=== PATIENT | male | born 1960 | race Asian ===

== ENCOUNTER 2019-01-29 15:51 | Inpatient (IN) | payer BC ==
[2019-01-29] MEDS: SODIUM CHLORIDE 0.9% 1L BAG IV* (16:42)
[2019-01-29] MEDS: ONDANSETRON 4 MG INJ IV (16:43)
[2019-01-29] MEDS: IBUPROFEN 600 MG TAB PO (16:43)
[2019-01-29] MEDS: CEFTRIAXONE 1 GM/50 ML (PMX) 50 ML IVPB (16:43)
[2019-01-29 16:44] LABS: ADD MAN DIFF? NO
[2019-01-29 16:59] LABS: ABNORMAL IP MESSAGE 1; BASOPHILS % 0.2 % (0.0-2.0); HEMATOCRIT 41.6 % (42.0-52.0); HEMOGLOBIN 12.9 g/dl (14.0-18.0); LYMPHOCYTES # 0.6 10^3/ul (0.8-2.9); MEAN CORPUSCULAR HEMOGLOBIN 21.6 pg (29.0-33.0); MEAN CORPUSCULAR VOLUME 69.7 fl (82.0-101.0); MEAN PLATELET VOLUME 9.8 fl (7.4-10.4); MONOCYTE # 1.3 10^3/ul (0.3-0.9); MONOCYTES % 10.5 % (0.0-11.0); NEUTROPHIL # 10.2 10^3/ul (1.6-7.5); NEUTROPHILS % 83.2 % (39.0-77.0); PLATELET COUNT 234 10^3/UL (140-415); POSITIVE DIFF @See below; RED BLOOD COUNT 5.97 10^6/ul (4.70-6.10); RED CELL DISTRIBUTION WIDTH 13.7 % (11.5-14.5)
[2019-01-29 16:59] LABS: WHITE BLOOD COUNT 12.2 10^3/ul (4.8-10.8)
[2019-01-29 17:17] LABS: ALANINE AMINOTRANSFERASE 75 IU/L (13-69); ALBUMIN/GLOBULIN RATIO 1.02; ALKALINE PHOSPHATASE 429 IU/L (42-121); ANION GAP 21 (5-13); ASPARTATE AMINO TRANSFERASE 54 IU/L (15-46); BILIRUBIN,INDIRECT 0.5 mg/dl (0-1.1); BILIRUBIN,TOTAL 0.5 mg/dl (0.2-1.3); BLOOD UREA NITROGEN 23 mg/dl (7-20); CALCIUM 9.3 mg/dl (8.4-10.2); CARBON DIOXIDE 19 mmol/L (21-31); CHLORIDE 94 mmol/L (97-110); CREATININE 1.39 mg/dl (0.61-1.24); Estimated GFR 53 mL/min (>60); LIPASE 38 U/L (23-300); POTASSIUM 4.6 mmol/L (3.5-5.1); SODIUM 134 mmol/L (135-144); TOTAL PROTEIN 7.9 g/dl (6.1-8.1)
[2019-01-29 17:18] LABS: INR 1.01; PROTIME 13.4 Sec (11.9-14.9)
[2019-01-29 17:19] LABS: PARTIAL THROMBOPLASTIN TIME 43.9 Sec (23.0-35.0)
[2019-01-29 17:27] LABS: TROPONIN-I < 0.012 ng/ml (0.000-0.120)
[2019-01-29 17:28] LABS: ADD UMIC YES; UR AMORPHOUS CRYSTAL MODERATE /HPF (NONE SEEN); UR ASCORBIC ACID NEGATIVE (NEGATIVE); UR BACTERIA FEW /HPF (NONE SEEN); UR BILIRUBIN (Dip) NEGATIVE (NEGATIVE); UR BLOOD (Dip) 2+ mg/dL (NEGATIVE); UR CLARITY CLOUDY (CLEAR); UR COLOR YELLOW (YELLOW); UR GLUCOSE (Dip) 3+ mg/dL (NEGATIVE); UR GRANULAR CAST FEW /HPF (NONE SEEN); UR KETONES (Dip) 2+ mg/dL (NEGATIVE); UR LEUKOCYTE ESTERASE (Dip) NEGATIVE Leu/ul (NEGATIVE); UR MUCUS FEW /HPF (NONE SEEN); UR NITRITE (Dip) NEGATIVE (NEGATIVE); UR RBC 4 /HPF (0-5); UR SPECIFIC GRAVITY (Dip) 1.022 (1.003-1.030); UR TOTAL PROTEIN (Dip) 3+ mg/dl (NEGATIVE); UR UROBILINOGEN (Dip) NEGATIVE (NEGATIVE); UR WBC 23 /HPF (0-5)
[2019-01-29 17:38] LABS: GLUCOSE 401 mg/dl (70-220)
[2019-01-29] MEDS ORDERED: DEXTROSE 10%/0.45% NACL 1,000 ML IV (17:56)
[2019-01-29] MEDS ORDERED: NS + KCL 40 MEQ 1,000 ML IV (17:56)
[2019-01-29] MEDS ORDERED: SOD CHLORIDE 0.9% 1,000 ML IV (17:56)
[2019-01-29] MEDS ORDERED: D10/0.45% NACL + KCL 40 MEQ 1,000 ML IV (17:56)
[2019-01-29] MEDS ORDERED: DEXTROSE 50% 50 ML SYRINGE IV ×4 (18:00→22:30)
[2019-01-29] MEDS: AZITHROMYCIN 500MG/NS (PMX) 250 ML IVPB (18:06)
[2019-01-29 18:13] LABS: ANISOCYTOSIS 1+ (0-0); BAND NEUTROPHILS #M 1.7 10^3/ul (0.0-0.6); BAND NEUTROPHILS % (M) 14 % (0-4); MICROCYTOSIS 1+ (0-0); OVALOCYTES 1+ (0-0); PLATELET ESTIMATE NORMAL; POIKILOCYTOSIS 2+ (0-0); SEG NEUT #M 10.7 10^3/ul (1.6-7.5); SEGMENTED NEUTROPHILS (M) % 86 % (39-77); SMUDGE%M 21 % (0-0); TEAR DROP CELLS 1+ (0-0)
[2019-01-29] MEDS: LACTATED RINGER S IV (18:34)
[2019-01-29 18:48] LABS: LACTIC ACID 1.7 mmol/L (0.5-2.0)
[2019-01-29 18:49] LABS: ANION GAP 17 (5-13); BLOOD UREA NITROGEN 21 mg/dl (7-20); CALCIUM 7.5 mg/dl (8.4-10.2); CARBON DIOXIDE 16 mmol/L (21-31); CHLORIDE 101 mmol/L (97-110); CREATININE 1.06 mg/dl (0.61-1.24); Estimated GFR > 60 mL/min (>60); GLUCOSE 336 mg/dl (70-220); MAGNESIUM 1.8 mg/dl (1.7-2.5); PHOSPHORUS 2.5 mg/dl (2.5-4.9); POTASSIUM 4.1 mmol/L (3.5-5.1); SODIUM 134 mmol/L (135-144)
[2019-01-29] MEDS: INSULIN REGULAR, HUMAN 100 UNIT in SOD CHLORIDE 0.9% 100 ML IV (19:14)
[2019-01-29] MEDS: D10/0.45% NACL + KCL 30 MEQ 1,000 ML IV (19:15)
[2019-01-29] MEDS: NS + KCL 30 MEQ 1,000 ML IV (19:15)
[2019-01-29 21:01] LABS: AADO2 Arterial 53.9 mmHg (7.0-24.0); Allen Test ACCEPTAB; Arterial Base Excess -7.6 mmol/L (-3.0-3); Arterial COHb 0.7 % (0.0-3.0); Arterial Fraction of Oxyhgb 93.2 % (93.0-99.0); Arterial HCO3 15.7 mmol/L (22.0-26.0); Arterial MetHb 0.2 % (0.0-1.5); Arterial pCO2 25.7 mmhg (35-45); MODE ROOM AIR; Site Right Radial
[2019-01-29 21:21] LABS: LACTIC ACID 1.6 mmol/L (0.5-2.0)
[2019-01-29 21:22] LABS: ANION GAP 12 (5-13); BLOOD UREA NITROGEN 23 mg/dl (7-20); CALCIUM 7.4 mg/dl (8.4-10.2); CARBON DIOXIDE 20 mmol/L (21-31); CHLORIDE 102 mmol/L (97-110); CREATININE 1.04 mg/dl (0.61-1.24); Estimated GFR > 60 mL/min (>60); GLUCOSE 372 mg/dl (70-220); MAGNESIUM 1.9 mg/dl (1.7-2.5); PHOSPHORUS 2.3 mg/dl (2.5-4.9); POTASSIUM 4.1 mmol/L (3.5-5.1); SODIUM 134 mmol/L (135-144)
[2019-01-29] MEDS ORDERED: GLUCOSE GEL 15 GRAM TUBE PO ×2 (22:30)
[2019-01-29] MEDS ORDERED: GLUCAGON 1 MG INJ IM (22:30)
[2019-01-29] MEDS ORDERED: GLUCOSE GEL 15 GRAM TUBE BUCCAL (22:30)
[2019-01-29 22:38] LABS: MODE ROOM AIR; MetHgb Venous 0.6 %; Sample Type Blood venous; Site VENOUS LINE; Venous COHb 0.5 %; Venous Fraction OxyHgb 51.7 %; Venous Oxygen Sat 52.3 mmHG (55.0-75.0)
[2019-01-29 23:33] LABS: LACTIC ACID 1.7 mmol/L (0.5-2.0)
[2019-01-29] MEDS: INSULIN GLARGINE [LANTus] (100 UNITS/ML) SYG SC (23:35)
[2019-01-30] MEDS: NS + KCL 30 MEQ 1,000 ML IV (02:09)
[2019-01-30] MEDS: ACETAMINOPHEN 325 MG TAB PO ×2 (02:50→08:59)
[2019-01-30 03:55] LABS: ANION GAP 7 (5-13); BLOOD UREA NITROGEN 17 mg/dl (7-20); CALCIUM 7.6 mg/dl (8.4-10.2); CARBON DIOXIDE 24 mmol/L (21-31); CHLORIDE 106 mmol/L (97-110); CREATININE 0.85 mg/dl (0.61-1.24); Estimated GFR > 60 mL/min (>60); GLUCOSE 299 mg/dl (70-220); PHOSPHORUS 0.8 mg/dl (2.5-4.9); POTASSIUM 3.9 mmol/L (3.5-5.1); SODIUM 137 mmol/L (135-144)
[2019-01-30] MEDS: SOD CHLORIDE 0.9% 1,000 ML IV ×2 (04:56→13:11)
[2019-01-30 07:17] LABS: IRON < 10 ug/dl (35-150)
[2019-01-30 07:18] LABS: TOTAL IRON BINDING CAPACITY 188 ug/dl (241-421)
[2019-01-30] MEDS: FAMOTIDINE 20 MG TAB PO ×2 (08:59→20:24)
[2019-01-30] MEDS: INSULIN GLARGINE [LANTus] (100 UNITS/ML) SYG SC ×2 (09:06→20:26)
[2019-01-30] MEDS: INSULIN ASPART [NOVOLOG] 3 ML PEN SC ×6 (09:07→20:24)
[2019-01-30] MEDS: LEVOFLOXACIN 500MG/D5W (PMX) 100 ML IVPB (09:22)
[2019-01-30] MEDS: SOD FERRIC GLUC COMPLX 125 MG in SOD CHLORIDE 0.9% 100 ML IVPB (13:10)
[2019-01-30] MEDS: CEFEPIME 2GM/50 ML (PMX) 50 ML IVPB ×2 (13:10→20:24)
[2019-01-30] MEDS: POTASSIUM PHOSPHATE 40 MEQ in SOD CHLORIDE 0.9% 250 ML IVPB (13:10)
[2019-01-30 14:49] LABS: TROPONIN-I < 0.012 ng/ml (0.000-0.120)
[2019-01-30] MEDS: ONDANSETRON 4 MG INJ IV (15:29)
[2019-01-30] MEDS: morphine 2 MG INJ IV ×2 (15:30→21:47)
[2019-01-31] MEDS: ACCU-CHEK XX (01:45)
[2019-01-31] MEDS: ACETAMINOPHEN 325 MG TAB PO ×2 (03:13→15:34)
[2019-01-31] MEDS: morphine 2 MG INJ IV (03:19)
[2019-01-31] MEDS: SOD CHLORIDE 0.9% 1,000 ML IV ×3 (03:43→20:24)
[2019-01-31 04:58] LABS: ABNORMAL IP MESSAGE 1; HEMATOCRIT 30.8 % (42.0-52.0); MEAN CORPUSCULAR HEMOGLOBIN 21.5 pg (29.0-33.0); MEAN CORPUSCULAR HGB CONC 32.5 g/dl (32.0-37.0); MEAN CORPUSCULAR VOLUME 66.2 fl (82.0-101.0); MEAN PLATELET VOLUME 9.9 fl (7.4-10.4); PLATELET COUNT 212 10^3/UL (140-415); POSITIVE DIFF @See below; RED BLOOD COUNT 4.65 10^6/ul (4.70-6.10); RED CELL DISTRIBUTION WIDTH 13.7 % (11.5-14.5)
[2019-01-31 04:58] LABS: WHITE BLOOD COUNT 8.1 10^3/ul (4.8-10.8)
[2019-01-31 05:24] LABS: ADD MAN DIFF? YES
[2019-01-31 05:28] LABS: ANION GAP 8 (5-13); BLOOD UREA NITROGEN 12 mg/dl (7-20); CALCIUM 7.7 mg/dl (8.4-10.2); CARBON DIOXIDE 22 mmol/L (21-31); CHLORIDE 108 mmol/L (97-110); CREATININE 0.82 mg/dl (0.61-1.24); Estimated GFR > 60 mL/min (>60); GLUCOSE 146 mg/dl (70-220); MAGNESIUM 1.8 mg/dl (1.7-2.5); PHOSPHORUS 1.4 mg/dl (2.5-4.9); POTASSIUM 3.2 mmol/L (3.5-5.1); SODIUM 138 mmol/L (135-144)
[2019-01-31] MEDS: INSULIN ASPART [NOVOLOG] 3 ML PEN SC ×7 (07:35→20:21)
[2019-01-31 07:46] LABS: ANISOCYTOSIS 1+ (0-0); BAND NEUTROPHILS #M 0.9 10^3/ul (0.0-0.6); BAND NEUTROPHILS % (M) 12 % (0-4); BURR CELLS 2+ (0-0); EOSINOPHILS % (M) 1 % (0-7); HYPOCHROMASIA 1+ (0-0); LYMPHOCYTES #M 0.5 10^3/ul (0.8-2.9); LYMPHOCYTES % (M) 7 % (15-51); MONOCYTE #M 0.1 10^3/ul (0.3-0.9); MONOCYTES % (M) 2 % (0-11); MYELOCYTES #M 0.1 10^3/ul (0.0-0.0); MYELOCYTES % (M) 2 % (0-0); OVALOCYTES 1+ (0-0); PLATELET ESTIMATE NORMAL; POIKILOCYTOSIS 1+ (0-0); SEG NEUT #M 6.2 10^3/ul (1.6-7.5); SEGMENTED NEUTROPHILS (M) % 76 % (39-77); SMUDGE%M 2 % (0-0); TARGET CELLS 1+ (0-0)
[2019-01-31] MEDS: FAMOTIDINE 20 MG TAB PO ×2 (08:41→20:18)
[2019-01-31] MEDS: CEFEPIME 2GM/50 ML (PMX) 50 ML IVPB ×2 (09:57→20:18)
[2019-01-31] MEDS: SOD FERRIC GLUC COMPLX 125 MG in SOD CHLORIDE 0.9% 100 ML IVPB (15:27)
[2019-01-31] MEDS: POTASSIUM PHOSPHATE 40 MEQ in SOD CHLORIDE 0.9% 250 ML IVPB (15:28)
[2019-01-31] MEDS: INSULIN GLARGINE [LANTus] (100 UNITS/ML) SYG SC (20:19)
[2019-02-01] MEDS: ACCU-CHEK XX (02:16)
[2019-02-01] MEDS: morphine 2 MG INJ IV (02:17)
[2019-02-01] MEDS: SOD CHLORIDE 0.9% 1,000 ML IV (02:20)
[2019-02-01 05:15] LABS: HEMATOCRIT 31.7 % (42.0-52.0); HEMOGLOBIN 10.7 g/dl (14.0-18.0); MEAN CORPUSCULAR HEMOGLOBIN 21.8 pg (29.0-33.0); MEAN CORPUSCULAR HGB CONC 33.8 g/dl (32.0-37.0); MEAN CORPUSCULAR VOLUME 64.6 fl (82.0-101.0); MEAN PLATELET VOLUME 10.3 fl (7.4-10.4); NUCLEATED RED BLOOD CELLS% 0.2 /100WBC (0.0-0.0); PLATELET COUNT 251 10^3/UL (140-415); POSITIVE DIFF @See below; RED BLOOD COUNT 4.91 10^6/ul (4.70-6.10); RED CELL DISTRIBUTION WIDTH 13.7 % (11.5-14.5)
[2019-02-01 05:15] LABS: WHITE BLOOD COUNT 10.6 10^3/ul (4.8-10.8)
[2019-02-01 05:25] LABS: ADD MAN DIFF? YES
[2019-02-01 05:39] LABS: ANION GAP 7 (5-13); BLOOD UREA NITROGEN 11 mg/dl (7-20); CALCIUM 7.5 mg/dl (8.4-10.2); CARBON DIOXIDE 23 mmol/L (21-31); CHLORIDE 106 mmol/L (97-110); CREATININE 0.73 mg/dl (0.61-1.24); Estimated GFR > 60 mL/min (>60); GLUCOSE 145 mg/dl (70-220); POTASSIUM 3.3 mmol/L (3.5-5.1); SODIUM 136 mmol/L (135-144)
[2019-02-01 05:45] LABS: MAGNESIUM 1.9 mg/dl (1.7-2.5)
[2019-02-01 05:45] LABS: PHOSPHORUS 1.5 mg/dl (2.5-4.9)
[2019-02-01] MEDS: POTASSIUM CHLORIDE 100 ML IVPB (06:37)
[2019-02-01] MEDS: INSULIN ASPART [NOVOLOG] 3 ML PEN SC ×7 (07:35→20:53)
[2019-02-01 08:03] LABS: ANISOCYTOSIS 1+ (0-0); BAND NEUTROPHILS #M 1.3 10^3/ul (0.0-0.6); BAND NEUTROPHILS % (M) 13 % (0-4); GIANT THROMBO% (M) 1 % (0-0); LYMPHOCYTES #M 0.2 10^3/ul (0.8-2.9); LYMPHOCYTES % (M) 2 % (15-51); MONOCYTES % (M) 10 % (0-11); PLATELET ESTIMATE NORMAL; POIKILOCYTOSIS 1+ (0-0); REACTIVE LYMPHOCYTES #M 0.3 10^3/ul (0.0-0.0); REACTIVE LYMPHOCYTES% (M) 3 % (0-0); SEG NEUT #M 7.8 10^3/ul (1.6-7.5); SEGMENTED NEUTROPHILS (M) % 72 % (39-77); SMUDGE%M 8 % (0-0); TARGET CELLS 1+ (0-0)
[2019-02-01] MEDS: CEFEPIME 2GM/50 ML (PMX) 50 ML IVPB ×2 (08:37→22:13)
[2019-02-01] MEDS: ACETAMINOPHEN 325 MG TAB PO ×2 (08:37→17:50)
[2019-02-01] MEDS: FAMOTIDINE 20 MG TAB PO ×2 (08:37→20:51)
[2019-02-01] MEDS: SOD FERRIC GLUC COMPLX 125 MG in SOD CHLORIDE 0.9% 100 ML IVPB (12:24)
[2019-02-01] MEDS: POTASSIUM PHOSPHATE 40 MEQ in SOD CHLORIDE 0.9% 250 ML IVPB (14:40)
[2019-02-01] MEDS: SOD CHLORIDE 0.45% 1,000 ML IV (14:48)
[2019-02-01] MEDS: INSULIN GLARGINE [LANTus] (100 UNITS/ML) SYG SC (20:54)
[2019-02-02] MEDS: ACETAMINOPHEN 325 MG TAB PO ×2 (01:57→13:55)
[2019-02-02] MEDS: ACCU-CHEK XX (02:00)
[2019-02-02] MEDS: SOD CHLORIDE 0.45% 1,000 ML IV ×3 (04:23→19:26)
[2019-02-02 06:39] LABS: HEMATOCRIT 31.8 % (42.0-52.0); HEMOGLOBIN 10.6 g/dl (14.0-18.0); MEAN CORPUSCULAR HEMOGLOBIN 21.4 pg (29.0-33.0); MEAN CORPUSCULAR HGB CONC 33.3 g/dl (32.0-37.0); MEAN CORPUSCULAR VOLUME 64.1 fl (82.0-101.0); NUCLEATED RED BLOOD CELLS% 0.2 /100WBC (0.0-0.0); PLATELET COUNT 312 10^3/UL (140-415); POSITIVE DIFF @See below; RED BLOOD COUNT 4.96 10^6/ul (4.70-6.10); RED CELL DISTRIBUTION WIDTH 13.6 % (11.5-14.5)
[2019-02-02 06:39] LABS: WHITE BLOOD COUNT 11.1 10^3/ul (4.8-10.8)
[2019-02-02 06:47] LABS: ADD MAN DIFF? YES
[2019-02-02 07:00] LABS: MAGNESIUM 1.9 mg/dl (1.7-2.5)
[2019-02-02 07:00] LABS: PHOSPHORUS 2.8 mg/dl (2.5-4.9)
[2019-02-02 07:03] LABS: ANION GAP 9 (5-13); BLOOD UREA NITROGEN 11 mg/dl (7-20); CALCIUM 7.4 mg/dl (8.4-10.2); CARBON DIOXIDE 23 mmol/L (21-31); CHLORIDE 105 mmol/L (97-110); CREATININE 0.68 mg/dl (0.61-1.24); Estimated GFR > 60 mL/min (>60); GLUCOSE 92 mg/dl (70-220); POTASSIUM 3.3 mmol/L (3.5-5.1); SODIUM 137 mmol/L (135-144)
[2019-02-02 07:44] LABS: ANISOCYTOSIS 1+ (0-0); BAND NEUTROPHILS #M 0.3 10^3/ul (0.0-0.6); BAND NEUTROPHILS % (M) 3 % (0-4); EOSINOPHILS % (M) 1 % (0-7); HYPOCHROMASIA 1+ (0-0); LYMPHOCYTES #M 0.9 10^3/ul (0.8-2.9); LYMPHOCYTES % (M) 9 % (15-51); MONOCYTE #M 1.5 10^3/ul (0.3-0.9); MONOCYTES % (M) 14 % (0-11); PLATELET ESTIMATE NORMAL; POIKILOCYTOSIS 1+ (0-0); POLYCHROMASIA 1+ (0-0); SEG NEUT #M 8.1 10^3/ul (1.6-7.5); SEGMENTED NEUTROPHILS (M) % 73 % (39-77); SMUDGE%M 7 % (0-0); TARGET CELLS 1+ (0-0)
[2019-02-02] MEDS: INSULIN ASPART [NOVOLOG] 3 ML PEN SC ×7 (08:00→21:00)
[2019-02-02] MEDS: FAMOTIDINE 20 MG TAB PO ×2 (08:30→20:58)
[2019-02-02] MEDS: CEFEPIME 2GM/50 ML (PMX) 50 ML IVPB ×3 (09:00→20:57)
[2019-02-02] MEDS: POTASSIUM CHLORIDE (SR) 20 MEQ TAB PO (15:18)
[2019-02-02 16:21] LABS: ADD UMIC YES; UR ASCORBIC ACID NEGATIVE (NEGATIVE); UR BILIRUBIN (Dip) NEGATIVE (NEGATIVE); UR BLOOD (Dip) 1+ mg/dL (NEGATIVE); UR CLARITY CLEAR (CLEAR); UR COLOR YELLOW (YELLOW); UR GLUCOSE (Dip) 3+ mg/dL (NEGATIVE); UR KETONES (Dip) TRACE mg/dL (NEGATIVE); UR LEUKOCYTE ESTERASE (Dip) NEGATIVE Leu/ul (NEGATIVE); UR NITRITE (Dip) NEGATIVE (NEGATIVE); UR RBC 1 /HPF (0-5); UR TOTAL PROTEIN (Dip) 1+ mg/dl (NEGATIVE); UR UROBILINOGEN (Dip) 2+ mg/dL (NEGATIVE); UR WBC 9 /HPF (0-5)
[2019-02-02] MEDS: INSULIN GLARGINE [LANTus] (100 UNITS/ML) SYG SC (21:03)
[2019-02-02 21:52] LABS: LACTIC ACID 2.2 mmol/L (0.5-2.0)
[2019-02-02] MEDS: ACETAMINOPHEN 650MG/20.3ML CUP PO (22:27)
[2019-02-03] MEDS: ACCU-CHEK XX (02:00)
[2019-02-03] MEDS: ACETAMINOPHEN 325 MG TAB PO ×2 (05:13→14:39)
[2019-02-03 06:17] LABS: ADD MAN DIFF? NO
[2019-02-03 06:20] LABS: BASOPHILS % 0.3 % (0.0-2.0); EOSINOPHILS # 0.1 10^3/ul (0.0-0.5); EOSINOPHILS % 0.9 % (0.0-7.0); HEMATOCRIT 32.4 % (42.0-52.0); HEMOGLOBIN 10.8 g/dl (14.0-18.0); LYMPHOCYTES # 1.1 10^3/ul (0.8-2.9); LYMPHOCYTES % 8.3 % (15.0-51.0); MEAN CORPUSCULAR HGB CONC 33.3 g/dl (32.0-37.0); MEAN CORPUSCULAR VOLUME 65.9 fl (82.0-101.0); MEAN PLATELET VOLUME 9.7 fl (7.4-10.4); MONOCYTE # 1.4 10^3/ul (0.3-0.9); MONOCYTES % 10.9 % (0.0-11.0); NEUTROPHIL # 10.2 10^3/ul (1.6-7.5); NEUTROPHILS % 78.4 % (39.0-77.0); PLATELET COUNT 374 10^3/UL (140-415); RED BLOOD COUNT 4.92 10^6/ul (4.70-6.10); RED CELL DISTRIBUTION WIDTH 13.4 % (11.5-14.5)
[2019-02-03 07:04] LABS: ANION GAP 8 (5-13); BLOOD UREA NITROGEN 13 mg/dl (7-20); CALCIUM 8.3 mg/dl (8.4-10.2); CARBON DIOXIDE 26 mmol/L (21-31); CHLORIDE 102 mmol/L (97-110); CREATININE 0.76 mg/dl (0.61-1.24); Estimated GFR > 60 mL/min (>60); GLUCOSE 172 mg/dl (70-220); MAGNESIUM 1.8 mg/dl (1.7-2.5); POTASSIUM 3.4 mmol/L (3.5-5.1); SODIUM 136 mmol/L (135-144)
[2019-02-03 07:04] LABS: PHOSPHORUS 2.8 mg/dl (2.5-4.9)
[2019-02-03] MEDS: FAMOTIDINE 20 MG TAB PO ×2 (08:25→21:33)
[2019-02-03] MEDS: CEFEPIME 2GM/50 ML (PMX) 50 ML IVPB (08:26)
[2019-02-03] MEDS: INSULIN ASPART [NOVOLOG] 3 ML PEN SC ×7 (08:28→21:32)
[2019-02-03] MEDS: SOD CHLORIDE 0.45% 1,000 ML IV (10:49)
[2019-02-03] MEDS: POTASSIUM CHLORIDE (SR) 20 MEQ TAB PO (17:44)
[2019-02-03 18:43] LABS: LACTIC ACID 1.4 mmol/L (0.5-2.0)
[2019-02-03] MEDS: INSULIN GLARGINE [LANTus] (100 UNITS/ML) SYG SC (21:31)
[2019-02-03] MEDS: DOCUSATE SODIUM 100 MG CAP PO (21:33)
[2019-02-03] MEDS: LEVOFLOXACIN 750MG/D5W (PMX) 150 ML IVPB (21:33)
[2019-02-04] MEDS: ACCU-CHEK XX (02:00)
[2019-02-04] MEDS: SOD CHLORIDE 0.45% 1,000 ML IV ×4 (02:20→23:00)
[2019-02-04] MEDS: ACETAMINOPHEN 325 MG TAB PO (02:42)
[2019-02-04 07:21] LABS: ADD MAN DIFF? NO
[2019-02-04 07:24] LABS: WHITE BLOOD COUNT 10.2 10^3/ul (4.8-10.8)
[2019-02-04 07:24] LABS: BASOPHILS % 0.3 % (0.0-2.0); EOSINOPHILS # 0.1 10^3/ul (0.0-0.5); EOSINOPHILS % 0.6 % (0.0-7.0); HEMOGLOBIN 9.5 g/dl (14.0-18.0); LYMPHOCYTES # 0.9 10^3/ul (0.8-2.9); LYMPHOCYTES % 9.1 % (15.0-51.0); MEAN CORPUSCULAR HEMOGLOBIN 21.5 pg (29.0-33.0); MEAN CORPUSCULAR HGB CONC 32.8 g/dl (32.0-37.0); MEAN CORPUSCULAR VOLUME 65.8 fl (82.0-101.0); MEAN PLATELET VOLUME 9.5 fl (7.4-10.4); MONOCYTE # 1.1 10^3/ul (0.3-0.9); MONOCYTES % 10.6 % (0.0-11.0); NEUTROPHILS % 78.3 % (39.0-77.0); PLATELET COUNT 386 10^3/UL (140-415); POSITIVE DIFF @See below; RED BLOOD COUNT 4.41 10^6/ul (4.70-6.10); RED CELL DISTRIBUTION WIDTH 13.4 % (11.5-14.5)
[2019-02-04 07:44] LABS: LACTIC ACID 1.3 mmol/L (0.5-2.0)
[2019-02-04 07:48] LABS: ANION GAP 6 (5-13); BLOOD UREA NITROGEN 15 mg/dl (7-20); CALCIUM 7.7 mg/dl (8.4-10.2); CARBON DIOXIDE 26 mmol/L (21-31); CHLORIDE 101 mmol/L (97-110); CREATININE 0.73 mg/dl (0.61-1.24); Estimated GFR > 60 mL/min (>60); GLUCOSE 240 mg/dl (70-220); POTASSIUM 3.9 mmol/L (3.5-5.1); SODIUM 133 mmol/L (135-144)
[2019-02-04 07:49] LABS: MAGNESIUM 1.7 mg/dl (1.7-2.5)
[2019-02-04 07:49] LABS: PHOSPHORUS 3.1 mg/dl (2.5-4.9)
[2019-02-04] MEDS: FAMOTIDINE 20 MG TAB PO ×2 (08:01→20:14)
[2019-02-04] MEDS: DOCUSATE SODIUM 100 MG CAP PO ×2 (08:01→20:08)
[2019-02-04] MEDS: INSULIN ASPART [NOVOLOG] 3 ML PEN SC ×7 (08:06→20:14)
[2019-02-04 09:28] LABS: ANISOCYTOSIS 1+ (0-0); BAND NEUTROPHILS #M 0.3 10^3/ul (0.0-0.6); BAND NEUTROPHILS % (M) 3 % (0-4); EOSINOPHILS % (M) 1 % (0-7); GIANT THROMBO% (M) 1 % (0-0); LYMPHOCYTES #M 0.5 10^3/ul (0.8-2.9); LYMPHOCYTES % (M) 5 % (15-51); MONOCYTE #M 0.7 10^3/ul (0.3-0.9); MONOCYTES % (M) 7 % (0-11); PLATELET ESTIMATE NORMAL; POIKILOCYTOSIS 1+ (0-0); POLYCHROMASIA 1+ (0-0); REACTIVE LYMPHOCYTES #M 0.3 10^3/ul (0.0-0.0); REACTIVE LYMPHOCYTES% (M) 3 % (0-0); SEG NEUT #M 8.3 10^3/ul (1.6-7.5); SEGMENTED NEUTROPHILS (M) % 81 % (39-77); SMUDGE%M 6 % (0-0)
[2019-02-04 13:44] LABS: OCCULT BLOOD STOOL NEGATIVE (NEGATIVE)
[2019-02-04] MEDS: GUAIFENESIN/DM (SR) TAB PO ×2 (14:52→20:08)
[2019-02-04] MEDS: IBUPROFEN 600 MG TAB PO (20:09)
[2019-02-04] MEDS: SENNA TAB PO (20:09)
[2019-02-04] MEDS: LEVOFLOXACIN 750MG/D5W (PMX) 150 ML IVPB (20:09)
[2019-02-04] MEDS: INSULIN GLARGINE [LANTus] (100 UNITS/ML) SYG SC (20:13)
[2019-02-05] MEDS: ACCU-CHEK XX (02:00)
[2019-02-05] MEDS: ACETAMINOPHEN 325 MG TAB PO ×2 (05:40→18:06)
[2019-02-05] MEDS: SOD CHLORIDE 0.45% 1,000 ML IV ×2 (05:40→22:11)
[2019-02-05] MEDS: GUAIFENESIN/DM (SR) TAB PO ×3 (05:40→21:02)
[2019-02-05 06:09] LABS: ADD MAN DIFF? NO
[2019-02-05 06:15] LABS: BASOPHILS % 0.3 % (0.0-2.0); EOSINOPHILS # 0.1 10^3/ul (0.0-0.5); HEMATOCRIT 28.4 % (42.0-52.0); HEMOGLOBIN 9.4 g/dl (14.0-18.0); LYMPHOCYTES # 1.2 10^3/ul (0.8-2.9); LYMPHOCYTES % 10.8 % (15.0-51.0); MEAN CORPUSCULAR HEMOGLOBIN 21.7 pg (29.0-33.0); MEAN CORPUSCULAR HGB CONC 33.1 g/dl (32.0-37.0); MEAN CORPUSCULAR VOLUME 65.4 fl (82.0-101.0); MEAN PLATELET VOLUME 9.5 fl (7.4-10.4); MONOCYTES % 9.7 % (0.0-11.0); NEUTROPHIL # 8.2 10^3/ul (1.6-7.5); NEUTROPHILS % 76.8 % (39.0-77.0); PLATELET COUNT 436 10^3/UL (140-415); RED BLOOD COUNT 4.34 10^6/ul (4.70-6.10); RED CELL DISTRIBUTION WIDTH 13.8 % (11.5-14.5)
[2019-02-05 06:15] LABS: WHITE BLOOD COUNT 10.7 10^3/ul (4.8-10.8)
[2019-02-05 06:46] LABS: ANION GAP 7 (5-13); BLOOD UREA NITROGEN 14 mg/dl (7-20); CALCIUM 8.3 mg/dl (8.4-10.2); CARBON DIOXIDE 27 mmol/L (21-31); CHLORIDE 103 mmol/L (97-110); CREATININE 0.79 mg/dl (0.61-1.24); Estimated GFR > 60 mL/min (>60); GLUCOSE 139 mg/dl (70-220); POTASSIUM 3.6 mmol/L (3.5-5.1); SODIUM 137 mmol/L (135-144)
[2019-02-05 06:48] LABS: MAGNESIUM 1.9 mg/dl (1.7-2.5)
[2019-02-05] MEDS: INSULIN ASPART [NOVOLOG] 3 ML PEN SC ×7 (08:00→21:13)
[2019-02-05] MEDS: SENNA TAB PO ×2 (08:24→21:02)
[2019-02-05] MEDS: FAMOTIDINE 20 MG TAB PO ×2 (08:24→21:02)
[2019-02-05] MEDS: DOCUSATE SODIUM 100 MG CAP PO ×2 (08:24→21:02)
[2019-02-05] MEDS: LEVOFLOXACIN 750MG/D5W (PMX) 150 ML IVPB (20:27)
[2019-02-05] MEDS: INSULIN GLARGINE [LANTus] (100 UNITS/ML) SYG SC (21:14)
[2019-02-06] MEDS: ACCU-CHEK XX (01:11)
[2019-02-06] MEDS: GUAIFENESIN/DM (SR) TAB PO ×3 (06:46→20:11)
[2019-02-06] MEDS: INSULIN ASPART [NOVOLOG] 3 ML PEN SC ×7 (08:27→20:12)
[2019-02-06] MEDS: SENNA TAB PO ×2 (08:29→20:11)
[2019-02-06] MEDS: DOCUSATE SODIUM 100 MG CAP PO ×2 (08:29→20:12)
[2019-02-06] MEDS: FAMOTIDINE 20 MG TAB PO ×2 (08:29→20:12)
[2019-02-06 10:51] LABS: ADD MAN DIFF? NO
[2019-02-06 10:54] LABS: BASOPHILS % 0.3 % (0.0-2.0); EOSINOPHILS # 0.1 10^3/ul (0.0-0.5); EOSINOPHILS % 0.6 % (0.0-7.0); HEMATOCRIT 28.8 % (42.0-52.0); HEMOGLOBIN 9.3 g/dl (14.0-18.0); LYMPHOCYTES # 0.9 10^3/ul (0.8-2.9); MEAN CORPUSCULAR HEMOGLOBIN 21.9 pg (29.0-33.0); MEAN CORPUSCULAR HGB CONC 32.3 g/dl (32.0-37.0); MEAN CORPUSCULAR VOLUME 67.8 fl (82.0-101.0); MONOCYTE # 0.8 10^3/ul (0.3-0.9); MONOCYTES % 7.2 % (0.0-11.0); NEUTROPHIL # 9.4 10^3/ul (1.6-7.5); NEUTROPHILS % 82.8 % (39.0-77.0); PLATELET COUNT 481 10^3/UL (140-415); RED BLOOD COUNT 4.25 10^6/ul (4.70-6.10); RED CELL DISTRIBUTION WIDTH 14.6 % (11.5-14.5)
[2019-02-06 10:54] LABS: WHITE BLOOD COUNT 11.3 10^3/ul (4.8-10.8)
[2019-02-06 11:19] LABS: ALANINE AMINOTRANSFERASE 48 IU/L (13-69); ALBUMIN 2.8 g/dl (3.3-4.9); ALKALINE PHOSPHATASE 370 IU/L (42-121); ANION GAP 7 (5-13); ASPARTATE AMINO TRANSFERASE 39 IU/L (15-46); BILIRUBIN,INDIRECT 0.6 mg/dl (0-1.1); BILIRUBIN,TOTAL 0.6 mg/dl (0.2-1.3); BLOOD UREA NITROGEN 14 mg/dl (7-20); CARBON DIOXIDE 27 mmol/L (21-31); CHLORIDE 100 mmol/L (97-110); CREATININE 0.81 mg/dl (0.61-1.24); Estimated GFR > 60 mL/min (>60); GLUCOSE 263 mg/dl (70-220); MAGNESIUM 1.8 mg/dl (1.7-2.5); PHOSPHORUS 3.2 mg/dl (2.5-4.9); POTASSIUM 3.8 mmol/L (3.5-5.1); SODIUM 134 mmol/L (135-144); TOTAL PROTEIN 6.3 g/dl (6.1-8.1)
[2019-02-06] MEDS: CEFEPIME 1GM/50 ML (PMX) 50 ML IVPB ×2 (11:50→20:11)
[2019-02-06] MEDS: SOD CHLORIDE 0.45% 1,000 ML IV (11:54)
[2019-02-06] MEDS ORDERED: VANCOMYCIN IV PER PHARMACY XX (12:00)
[2019-02-06] MEDS: VANCOMYCIN 1 GM 250 ML IVPB (12:43)
[2019-02-06 12:47] LABS: PROCALCITONIN 1.47 ng/mL (0.00-0.10)
[2019-02-06] MEDS: ACETAMINOPHEN 325 MG TAB PO (20:11)
[2019-02-06] MEDS: INSULIN GLARGINE [LANTus] (100 UNITS/ML) SYG SC (20:22)
[2019-02-07] MEDS: VANCOMYCIN 750 MG (PMX) 250 ML IVPB ×3 (00:32→23:49)
[2019-02-07] MEDS: ACCU-CHEK XX (02:00)
[2019-02-07] MEDS ORDERED: VANCOMYCIN IV PER PHARMACY XX (03:30)
[2019-02-07] MEDS ORDERED: ACETAMINOPHEN 325 MG TAB PO (03:30)
[2019-02-07] MEDS ORDERED: KETOROLAC 15 MG INJ IV (03:30)
[2019-02-07] MEDS ORDERED: ONDANSETRON 4 MG INJ IV (03:30)
[2019-02-07] MEDS ORDERED: HYDROCODONE/APAP (5/325) TAB PO (03:30)
[2019-02-07] MEDS ORDERED: SOD CHLORIDE 0.9% 1,000 ML IV (03:30)
[2019-02-07] MEDS: GUAIFENESIN/DM (SR) TAB PO (05:01)
[2019-02-07] MEDS: ACETAMINOPHEN 325 MG TAB PO ×2 (05:03→11:30)
[2019-02-07] MEDS ORDERED: PANTOPRAZOLE (EC) 40 MG TAB PO (06:00)
[2019-02-07] MEDS: INSULIN ASPART [NOVOLOG] 3 ML PEN SC ×7 (08:20→21:00)
[2019-02-07] MEDS ORDERED: METOPROLOL 25 MG TAB PO (09:00)
[2019-02-07] MEDS ORDERED: CEFEPIME 1GM/50 ML (PMX) 50 ML IVPB (09:00)
[2019-02-07] MEDS: FAMOTIDINE 20 MG TAB PO ×2 (09:18→21:06)
[2019-02-07] MEDS: DOCUSATE SODIUM 100 MG CAP PO ×2 (09:18→21:06)
[2019-02-07] MEDS: CEFEPIME 1GM/50 ML (PMX) 50 ML IVPB ×2 (09:18→21:06)
[2019-02-07] MEDS: SENNA TAB PO ×2 (09:18→21:06)
[2019-02-07 10:04] LABS: ADD MAN DIFF? NO
[2019-02-07 10:07] LABS: WHITE BLOOD COUNT 10.8 10^3/ul (4.8-10.8)
[2019-02-07 10:07] LABS: BASOPHILS % 0.4 % (0.0-2.0); EOSINOPHILS # 0.1 10^3/ul (0.0-0.5); EOSINOPHILS % 0.6 % (0.0-7.0); HEMOGLOBIN 9.8 g/dl (14.0-18.0); LYMPHOCYTES # 0.9 10^3/ul (0.8-2.9); LYMPHOCYTES % 8.6 % (15.0-51.0); MEAN CORPUSCULAR HEMOGLOBIN 21.7 pg (29.0-33.0); MEAN CORPUSCULAR HGB CONC 31.6 g/dl (32.0-37.0); MEAN CORPUSCULAR VOLUME 68.6 fl (82.0-101.0); MEAN PLATELET VOLUME 8.8 fl (7.4-10.4); MONOCYTE # 0.7 10^3/ul (0.3-0.9); MONOCYTES % 6.3 % (0.0-11.0); NEUTROPHILS % 83.3 % (39.0-77.0); PLATELET COUNT 523 10^3/UL (140-415); RED BLOOD COUNT 4.52 10^6/ul (4.70-6.10); RED CELL DISTRIBUTION WIDTH 14.8 % (11.5-14.5)
[2019-02-07] MEDS: INSULIN GLARGINE [LANTus] (100 UNITS/ML) SYG SC (21:09)
[2019-02-07 23:32] LABS: VANCOMYCIN,TROUGH 10.4 ug/ml (10.0-20.0)
[2019-02-08] MEDS: ACCU-CHEK XX (02:00)
[2019-02-08] MEDS: GUAIFENESIN/DM (SR) TAB PO (05:58)
[2019-02-08] MEDS: INSULIN ASPART [NOVOLOG] 3 ML PEN SC ×4 (08:00→13:06)
[2019-02-08] MEDS: SENNA TAB PO (08:41)
[2019-02-08] MEDS: FAMOTIDINE 20 MG TAB PO (08:41)
[2019-02-08] MEDS: DOCUSATE SODIUM 100 MG CAP PO (08:41)
[2019-02-08] MEDS: ACETAMINOPHEN 325 MG TAB PO (08:49)
[2019-02-08] MEDS: CEFEPIME 1GM/50 ML (PMX) 50 ML IVPB (10:27)
[2019-02-08] MEDS ORDERED: VANCOMYCIN 1 GM 250 ML IVPB (12:00)
== END 2019-02-08 14:45 | disposition home or self-care (01) | DRG 871 ==
LOC: 2NE 02-01 15:35 → E/R 15:51 → ICU 18:10
PROVIDERS: Internal Medicine
DX: A41.9 Sepsis, unspecified organism (principal); E11.10 Type 2 diabetes mellitus with ketoacidosis without coma; J18.9 Pneumonia, unspecified organism; N17.9 Acute kidney failure, unspecified; N39.0 Urinary tract infection, site not specified; E86.0 Dehydration; D50.9 Iron deficiency anemia, unspecified; I10 Essential (primary) hypertension; Z79.4 Long term (current) use of insulin; B96.1 Klebsiella pneumoniae [K. pneumoniae] as the cause of diseases classified elsewhere
CPT/HCPCS: 36415; 36600; 71045; 71250; 74176; 80048; 80053; 80202; 81001; 82270; 82728; 82803; 82962; 83036; 83540; 83605; 83690; 83735; 84100; 84145; 84484; 85025; 85610; 85730; 87040-91; 87081; 87086; 93005; 96365; 96375; 97116; 97162; 97530; 99285-25